=== PATIENT | female | born 1945 | race Caucasian/White ===

== ENCOUNTER 2017-06-19 15:38 | Emergency (ER) | payer MEDICARE ==
[2017-06-19] MEDS ORDERED: Famotidine/PF 20 mg/2ml Vial ONE (16:19)
== END 2017-06-19 18:35 | disposition home or self-care (01) ==
LOC: ERS 15:38
DX: R06.02 Shortness of breath (principal); T50.8X5A Adverse effect of diagnostic agents, initial encounter; E03.9 Hypothyroidism, unspecified; K21.9 Gastro-esophageal reflux disease without esophagitis; G56.00 Carpal tunnel syndrome, unspecified upper limb; G25.81 Restless legs syndrome; E78.5 Hyperlipidemia, unspecified; I10 Essential (primary) hypertension; M19.90 Unspecified osteoarthritis, unspecified site; M81.0 Age-related osteoporosis without current pathological fracture; Z86.19 Personal history of other infectious and parasitic diseases
CPT/HCPCS: 96374; S0028

== ENCOUNTER 2018-01-09 07:26 | Outpatient (CLI) | payer MEDICARE ==
--- NOTE | 2018-01-09 08:36 | RAD ---
KUB: Date: 01/09/18 COMPARISON: 05/04/15. HISTORY: Calculus of kidney, microscopic hematuria. FINDINGS: Dense stool is seen within the colon, limiting assessment of the renal shadows. No discrete renal sto ne can be visualized on either side. There is evidence of multilevel lower lumbar spine surgery, whic h appears grossly unchanged. The bowel gas pattern appears nonobstructed. IMPRESSION: Grossly unremarkable KUB, assessment limited secondary to stool within the colon. POS: [facility]
--- NOTE | 2018-01-09 08:59 | ULT ---
BILATERAL RENAL ULTRASOUND: Date: 01/09/18 HISTORY: Renal calculus. FINDINGS: The right kidney measures 10.0 cm in length and the left kidney measures 9.4 cm in length. No hydrone phrosis or focal mass is seen on either side. There is a 6.0 mm echogenic focus in the right mid zana l cortex consistent with calculus, stable since 04/28/16. The urinary bladder is grossly unremarkable . IMPRESSION: Nonobstructing 6.0 mm right renal calculus. POS: [facility]
== END 2018-01-09 07:27 | disposition home or self-care (01) ==
LOC: ULT 07:26
PROVIDERS: ATTEND Urology
DX: N20.0 Calculus of kidney (principal); R31.29 Other microscopic hematuria
CPT/HCPCS: 36415; 74018; 76770; 80048; 81001; 87086; 88112

== ENCOUNTER 2018-01-22 12:44 | Outpatient (CLI) | payer MEDICARE ==
--- NOTE | 2018-01-22 13:47 | RAD ---
KUB: Date: 01/22/18 HISTORY: renal stones. FINDINGS: Comparison made with exam of 01/09/18. No suspicious calcifications are seen. Postop changes of metallic hardware in the lower lumbar spine again seen as on 01/09/18. The bowel gas pattern is unremarkable. There is fecal material in the colo n. IMPRESSION: No radiographic evidence of urinary tract calculi. POS: [facility]
== END 2018-01-22 12:45 | disposition home or self-care (01) ==
LOC: RAD 12:44
PROVIDERS: ATTEND Urology
DX: N20.0 Calculus of kidney (principal)
CPT/HCPCS: 74018

== ENCOUNTER 2018-06-19 11:03 | Outpatient (CLI) | payer MEDICARE ==
--- NOTE | 2018-06-19 13:20 | CT ---
CT ABDOMEN AND PELVIS WITHOUT CONTRAST: HISTORY: Left upper quadrant pain. COMPARISON: 04/25/2016 FINDINGS: Absence of oral and IV contrast reduces the sensitivity of the exam, particularly for evaluation of s olid organs involved. The lung bases are unremarkable. There is fatty infiltration of the liver. No calcified gallstones are seen. No free air or free fluid is noted in the abdomen or pelvis. No calculi are seen in the kidneys, ureters, or urinary bladder. No hydroureteronephrosis is noted o n either side. The patient is post hysterectomy. Postop changes of posterior spinal fusion and metallic hardware ar e seen in the lower lumbar spine. Neurovascular calcification without evidence of aneurysmal dilatat ion of the abdominal aorta. IMPRESSION: 1. Fatty liver. 2. No CT evidence of urinary tract calculi or obstruction. POS: [facility]
== END 2018-06-19 11:04 | disposition home or self-care (01) ==
LOC: BICCT 11:03
PROVIDERS: ATTEND Family Medicine
DX: R10.12 Left upper quadrant pain (principal); K76.0 Fatty (change of) liver, not elsewhere classified
CPT/HCPCS: 74176

== ENCOUNTER 2019-03-05 13:03 | Outpatient (CLI) | payer MEDICARE ==
--- NOTE | 2019-03-05 14:13 | RAD ---
ONE VIEW ABDOMEN: 03/05/19 HISTORY: Renolithiasis. COMPARISON: None. FINDINGS: Nonspecific bowel gas pattern. No suspicious densities overlying the expected region of the left and right renal silhouette. Limited evaluation due to bowel gas. No evidence of pneumoperitoneum in the supine projection. Stable postsurgical changes in the distal l umbar spine and lumbosacral junction. IMPRESSION: No radiographic evidence of nephrolithiasis. POS: [facility]
== END 2019-03-05 13:04 | disposition home or self-care (01) ==
LOC: RAD 13:03
PROVIDERS: ATTEND Urology
DX: N20.0 Calculus of kidney (principal)
CPT/HCPCS: 74018

== ENCOUNTER 2021-02-26 15:02 | Outpatient (CLI) | payer MEDICARE, OTHER | END 2021-02-26 15:03 | disposition home or self-care (01) | LOC: BICCT 15:02 | PROVIDERS: ATTEND Urology | DX: N20.0 Calculus of kidney (principal); K59.00 Constipation, unspecified; K57.90 Diverticulosis of intestine, part unspecified, without perforation or abscess without bleeding; I70.90 Unspecified atherosclerosis | CPT/HCPCS: 74176 ==

== ENCOUNTER 2021-03-11 19:00 | Outpatient (CLI) | payer MEDICARE, OTHER | END 2021-03-11 19:01 | disposition home or self-care (01) | LOC: SLEEPLAB 19:00 | PROVIDERS: ATTEND Family Medicine | DX: G47.33 Obstructive sleep apnea (adult) (pediatric) (principal); R53.83 Other fatigue; F32.9 Major depressive disorder, single episode, unspecified; R35.1 Nocturia; E11.9 Type 2 diabetes mellitus without complications; I10 Essential (primary) hypertension; G47.10 Hypersomnia, unspecified; E66.9 Obesity, unspecified; Z68.26 Body mass index [BMI] 26.0-26.9, adult | CPT/HCPCS: 95811 ==

== ENCOUNTER 2023-04-22 12:16 | Inpatient (IN) | payer MEDICARE ==
[2023-04-22 12:43] LABS: White Blood Cell (WBC) Count 6.8 10x3/uL (4.8-10.8)
[2023-04-22 12:44] LABS: #Eosinphils 0.1 thou/uL (0.0-0.7); #Monocytes 0.5 thou/uL (0.11-0.59); #Neutrophils 4.7 thou/uL (1.40-6.50); %Basophils 0.6 % (0.0-1.0); %Eosinophils 0.7 % (0.0-10.0); %Monocytes 7.8 % (0.0-10.0); %Neutrophils 68.6 % (42.0-75.0); Hematocrit 42.4 % (36.0-47.0); Hemoglobin 14.2 g/dL (12.0-16.0); Mean Corpuscular HGB CONC 33.5 g/dL (32.0-36.0); Mean Corpuscular Hemoglobin 31.5 pg (27.0-31.0); Mean Platelet Volume 9.7 fL (7.4-10.4); Platelet Count 212 10x3/uL (130-400); RBC Distribution Width 11.7 % (11.5-14.5); Red Blood Cell (RBC) Count 4.51 mill/uL (4.20-5.40)
[2023-04-22 13:00] LABS: Alkaline Phosphatase 110 U/L (40-110); Anion Gap 13 mmol/L (10-20); BUN (Urea Nitrogen) 22 mg/dL (9.8-20.1); Bilirubin, Total 0.5 mg/dL (0.2-1.2); Calc. Creatinine Clearance 0 mL/min (70-130); Calcium 9.6 mg/dL (7.8-10.44); Carbon Dioxide 27 mmol/L (23-31); Chloride 100 mmol/L (98-107); Estimated GFR 69; Globulin 3.3 g/dL (2.4-3.5); Glucose 302 mg/dL (83-110); Potassium 4.7 mmol/L (3.5-5.1); Protein, Total 7.3 g/dL (5.8-8.1); Sodium 135 mmol/L (136-145)
[2023-04-22 13:01] LABS: ALT (SGPT) 32 U/L (8-55); AST (SGOT) 22 U/L (5-34); CK (CPK) 118 U/L (29-168); PTT 29.4 sec (22.9-36.1); Prothrombin Time 13.5 sec (12.0-14.7)
[2023-04-22 13:18] LABS: Troponin I Less than 0.010 ng/mL (< 0.028)
[2023-04-22] MEDS ORDERED: Aspirin 325 MG TAB ONE (13:38)
[2023-04-22 13:45] LABS: Bacteria/HPF None Seen HPF (None Seen); Bilirubin Negative (Negative); Blood, Urine Negative (Negative); CAUTI Indications for Culture Dysuria,urgency,freq; Clarity Clear (Clear); Glucose, Urine (Dipstick) 500 mg/dL (Negative); Ketone, Urine Negative (Negative); Leukocyte Negative Leu/uL (Negative); Nitrite Negative (Negative); Protein, Urine (Dipstick) Negative (Neg-Trace); RBC/HPF 0-3 HPF (0-3); Specific Gravity, Urine 1.036 (1.002-1.036); Squamous Epithelial 0-3 HPF (0-3); Urobilinogen Normal mg/dL (Less than 2); WBC/HPF None Seen HPF (0-3)
[2023-04-22 13:47] LABS: Urine Culture Reflex No No
[2023-04-22] MEDS ORDERED: Acetaminophen 325 MG TAB PO PRN (14:40)
[2023-04-22] MEDS ORDERED: Senokot S 8.6-50 MG TAB PO PRN (14:40)
[2023-04-22] MEDS ORDERED: Ondansetron ODT 4 MG TAB PO PRN (14:40)
[2023-04-22] MEDS ORDERED: Ondansetron PF 4 MG/2 ML Vial IVP PRN (14:40)
[2023-04-22] MEDS ORDERED: hydrALAZINE 20 MG/ML VIAL SLOW IVP PRN (14:40)
[2023-04-22] MEDS ORDERED: Acetaminophen 650 MG Suppository PR PRN (14:40)
[2023-04-22] MEDS ORDERED: Dextrose 50% Abboject 50 ML SYRINGE SLOW IVP PRN (15:00)
[2023-04-22] MEDS ORDERED: Dextrose 5% in Water 1,000 ML IV PRN (15:00)
[2023-04-22] MEDS ORDERED: Insulin Regular 300 UNITS/3 ML VIAL SC PRN (15:00)
[2023-04-22] MEDS ORDERED: Glucagon 1 MG/ML KIT IM PRN (15:00)
[2023-04-22] MEDS ORDERED: Iopamidol-370 76% 500 ML MDV (1 ML CHARGE) ONE (15:52)
[2023-04-22] MEDS: Atorvastatin Calcium 40 MG TAB PO SCH (22:09)
[2023-04-22] MEDS: Oxybutynin 5 MG TAB PO SCH (22:10)
[2023-04-22] MEDS: glipiZIDE 5 MG TAB PO SCH (22:10)
[2023-04-22] MEDS ORDERED: diphenhydrAMINE 30 GM TUBE TOP PRN (23:19)
[2023-04-23 05:56] LABS: #Basophils 0.1 thou/uL (0.0-0.2); #Eosinphils 0.2 thou/uL (0.0-0.7); #Monocytes 0.8 thou/uL (0.11-0.59); #Neutrophils 3.6 thou/uL (1.40-6.50); %Lymphocytes 30.7 % (21.0-51.0); %Monocytes 11.2 % (0.0-10.0); %Neutrophils 53.4 % (42.0-75.0); Hematocrit 43.5 % (36.0-47.0); Hemoglobin 14.2 g/dL (12.0-16.0); Mean Corpuscular HGB CONC 32.6 g/dL (32.0-36.0); Mean Corpuscular Hemoglobin 30.9 pg (27.0-31.0); Mean Corpuscular Volume 94.8 fl (78.0-98.0); Mean Platelet Volume 9.7 fL (7.4-10.4); Platelet Count 198 10x3/uL (130-400); RBC Distribution Width 11.9 % (11.5-14.5); Red Blood Cell (RBC) Count 4.59 mill/uL (4.20-5.40); White Blood Cell (WBC) Count 6.7 10x3/uL (4.8-10.8)
[2023-04-23 06:26] LABS: Anion Gap 16 mmol/L (10-20); BUN (Urea Nitrogen) 15 mg/dL (9.8-20.1); Calc. Creatinine Clearance 5 mL/min (70-130); Calcium 9.3 mg/dL (7.8-10.44); Carbon Dioxide 25 mmol/L (23-31); Cardiac Risk 4.6 (Less than 4.5); Chloride 101 mmol/L (98-107); Cholesterol 137 mg/dl (< 200 Desired); Estimated GFR 79; Glucose 109 mg/dL (83-110); HDL Cholesterol 30 mg/dL (>60 Neg Risk); LDL Cholesterol, Calculated 52 mg/dL; Potassium 3.7 mmol/L (3.5-5.1); Sodium 138 mmol/L (136-145); Triglycerides 274 mg/dL (Less than 150)
[2023-04-23] MEDS ORDERED: Thyroid 60 MG TAB PO SCH (09:00)
[2023-04-23] MEDS: Aspirin 81 mg Enteric Coated Tablet PO SCH (09:51)
[2023-04-23] MEDS: FLUoxetine HCl 10 MG CAP PO SCH (09:52)
[2023-04-23] MEDS: Oxybutynin 5 MG TAB PO SCH ×2 (09:54→20:58)
[2023-04-23] MEDS: glipiZIDE 5 MG TAB PO SCH ×2 (13:01→20:58)
[2023-04-23] MEDS ORDERED: diphenhydrAMINE 25 MG CAP PO PRN (13:02)
[2023-04-23] MEDS ORDERED: diphenhydrAMINE 25 MG CAP PO SCH (13:15)
[2023-04-23] MEDS ORDERED: Polyvinyl Alcohol 1.4%/Povidone 0.6% Opth Drops EA EYE PRN (17:01)
[2023-04-23] MEDS: Ascorbic Acid 500 mg Chewable Tablet PO SCH (20:57)
[2023-04-23] MEDS: Atorvastatin Calcium 40 MG TAB PO SCH (20:58)
[2023-04-23] MEDS ORDERED: rOPINIRole HCl 2 MG TAB PO SCH (21:00)
[2023-04-23] MEDS ORDERED: CRANBERRY EXTRACT PO SCH (21:00)
[2023-04-23] MEDS ORDERED: Magnesium Oxide 400 MG TAB PO SCH (21:00)
[2023-04-24] MEDS ORDERED: Thyroid 30 MG TAB PO SCH ×2 (06:00→09:00)
[2023-04-24 08:23] VITALS: TEMP 97.2
[2023-04-24] MEDS ORDERED: Floranex 1 GM Packet PO SCH (09:00)
[2023-04-24] MEDS ORDERED: [UNRECOGNIZED DRUG - OTHER] PO SCH (09:00)
[2023-04-24] MEDS ORDERED: Multivitamin W/ Minerals 1 TAB PO SCH (09:00)
[2023-04-24] MEDS ORDERED: Loratadine 10 MG TAB PO SCH (09:00)
[2023-04-24] MEDS ORDERED: Atenolol 50 MG TAB PO SCH (09:00)
[2023-04-24] MEDS ORDERED: BIOTIN PO SCH (09:00)
[2023-04-24] MEDS: glipiZIDE 5 MG TAB PO SCH (09:09)
[2023-04-24] MEDS: Ascorbic Acid 500 mg Chewable Tablet PO SCH (09:09)
[2023-04-24] MEDS: Aspirin 81 mg Enteric Coated Tablet PO SCH (09:10)
[2023-04-24] MEDS: Oxybutynin 5 MG TAB PO SCH (09:10)
[2023-04-24] MEDS: FLUoxetine HCl 10 MG CAP PO SCH (09:26)
[2023-04-24 12:37] VITALS: BP 135/63
[2023-04-24] MEDS ORDERED: glipiZIDE 5 MG TAB PO SCH (16:30)
[2023-04-25] MEDS ORDERED: Thyroid 60 MG TAB PO SCH (06:00)
== END 2023-04-24 17:02 | disposition home or self-care (01) | DRG 93 ==
LOC: ERS 12:16 → 2SE 14:26 → INTOOBSV 14:26 → OBSVTOIN 04-23 17:04
PROVIDERS: ADMIT Family Medicine; ATTEND Internal Medicine Critical Care Medicine
DX: R20.2 Paresthesia of skin (principal); R29.90 Unspecified symptoms and signs involving the nervous system; F29 Unspecified psychosis not due to a substance or known physiological condition; F31.9 Bipolar disorder, unspecified; Z66 Do not resuscitate; F20.9 Schizophrenia, unspecified; E11.9 Type 2 diabetes mellitus without complications; G25.81 Restless legs syndrome; I10 Essential (primary) hypertension; E78.5 Hyperlipidemia, unspecified; E03.9 Hypothyroidism, unspecified; M19.90 Unspecified osteoarthritis, unspecified site; F41.9 Anxiety disorder, unspecified; R53.1 Weakness; K76.0 Fatty (change of) liver, not elsewhere classified; Z88.5 Allergy status to narcotic agent; Z88.1 Allergy status to other antibiotic agents; Z88.2 Allergy status to sulfonamides; Z88.8 Allergy status to other drugs, medicaments and biological substances; Z91.040 Latex allergy status; Z91.013 Allergy to seafood; Z91.018 Allergy to other foods; Z90.89 Acquired absence of other organs; Z98.891 History of uterine scar from previous surgery; Z90.710 Acquired absence of both cervix and uterus; Z98.49 Cataract extraction status, unspecified eye; Z98.890 Other specified postprocedural states
CPT/HCPCS: 0042T; 36415; 36416; 70450; 70496; 70498; 80048; 80053; 80061; 81001; 82550; 84484; 85025; 85610; 85730; 93005; 93306; G0378; J1650; Q9967

== ENCOUNTER 2023-07-21 17:00 | Outpatient (CLI) | payer MEDICARE | END 2023-07-21 17:01 | disposition home or self-care (01) | LOC: SLEEPLAB 17:00 | PROVIDERS: ATTEND Internal Medicine Critical Care Medicine | DX: G47.33 Obstructive sleep apnea (adult) (pediatric) (principal); I10 Essential (primary) hypertension; K21.9 Gastro-esophageal reflux disease without esophagitis; M19.90 Unspecified osteoarthritis, unspecified site; E78.00 Pure hypercholesterolemia, unspecified; E03.9 Hypothyroidism, unspecified; N95.2 Postmenopausal atrophic vaginitis; I82.409 Acute embolism and thrombosis of unspecified deep veins of unspecified lower extremity; K57.90 Diverticulosis of intestine, part unspecified, without perforation or abscess without bleeding; E11.9 Type 2 diabetes mellitus without complications; G25.81 Restless legs syndrome; R32 Unspecified urinary incontinence; H91.90 Unspecified hearing loss, unspecified ear; I49.3 Ventricular premature depolarization | CPT/HCPCS: 95977 ==

== ENCOUNTER 2024-09-12 21:00 | Inpatient (IN) | payer MEDICARE ==
[2024-09-12] MEDS ORDERED: Dextrose 5% in Water 1,000 ML IV PRN ×2 (22:08→22:41)
[2024-09-12] MEDS ORDERED: Dextrose 50% Abboject 50 ML SYRINGE SLOW IVP PRN (22:08)
[2024-09-12] MEDS ORDERED: Glucagon 1 MG/ML KIT IM PRN (22:08)
[2024-09-12 22:35] VITALS: BMI 24.7
[2024-09-12] MEDS: Sodium Chloride 0.9% 1,000 ML IV SCH (22:45)
[2024-09-12 23:01] LABS: #Basophils Less than 0.03 10x3/uL (0.0-0.2); #Eosinophils Less than 0.03 10x3/uL (0.0-0.7); %Basophils 0.2 % (0.0-1.0); %Lymphocytes 6.1 % (21.0-51.0); %Monocytes 2.8 % (0.0-10.0); %Neutrophils 90.1 % (42.0-75.0); Hematocrit 39.4 % (36.0-47.0); Hemoglobin 13.2 g/dL (12.0-16.0); Mean Corpuscular HGB CONC 33.5 g/dL (32.0-36.0); Mean Corpuscular Volume 92.5 fL (78.0-98.0); Platelet Count 162 10x3/uL (130-400); RBC Distribution Width 12.3 % (11.5-14.5); Red Blood Cell (RBC) Count 4.26 mill/uL (4.20-5.40)
[2024-09-12 23:09] LABS: Hemoglobin A1c 9.5 % (4.0-6.0)
[2024-09-12 23:28] LABS: Anion Gap 19 mmol/L (10-20); BUN (Urea Nitrogen) 22 mg/dL (9.8-20.1); Calc. Creatinine Clearance 68 mL/min (70-130); Calcium 8.3 mg/dL (7.8-10.44); Carbon Dioxide 14 mmol/L (23-31); Chloride 107 mmol/L (98-107); Estimated GFR 91; Glucose 342 mg/dL (83-110); Potassium 4.1 mmol/L (3.5-5.1); Sodium 136 mmol/L (136-145)
[2024-09-12 23:33] LABS: Troponin I 0.031 ng/mL (< 0.028)
[2024-09-13 00:18] LABS: Lactic Acid 1.34 mmol/L (0.50-2.20)
[2024-09-13] MEDS ORDERED: Electrolyte Replacement Protocol 1 EACH FS PRN (00:22)
[2024-09-13] MEDS ORDERED: Dextrose 5%-Lactated Ringers 1,000 ML IV SCH (00:45)
[2024-09-13 02:48] LABS: ALT (SGPT) 45 U/L (Less than 34); AST (SGOT) 48 U/L (11-34); Albumin 2.9 g/dL (3.1-4.5); Alkaline Phosphatase 72 U/L (40-110); Anion Gap 19 mmol/L (10-20); BUN (Urea Nitrogen) 21 mg/dL (9.8-20.1); Bilirubin, Total 0.7 mg/dL (0.3-1.2); Calc. Creatinine Clearance 64 mL/min (70-130); Calcium 8.3 mg/dL (7.8-10.44); Carbon Dioxide 15 mmol/L (23-31); Chloride 108 mmol/L (98-107); Estimated GFR 90; Globulin 3.6 g/dL (2.4-3.5); Glucose 335 mg/dL (83-110); Magnesium 1.9 mg/dL (1.6-2.6); Potassium 4.1 mmol/L (3.5-5.1); Protein, Total 6.5 g/dL (5.8-8.1); Sodium 138 mmol/L (136-145); Troponin I 0.025 ng/mL (< 0.028)
[2024-09-13] MEDS: Cefepime 1 GM in Sodium Chloride 0.9% 100 ML IVPB SCH (04:27)
[2024-09-13] MEDS: Insulin Lispro 100 UNIT/ML 10 ML VIAL SC PRN ×2 (04:43→18:04)
[2024-09-13 08:14] LABS: Anion Gap 18 mmol/L (10-20); BUN (Urea Nitrogen) 24 mg/dL (9.8-20.1); Calc. Creatinine Clearance 66 mL/min (70-130); Calcium 8.5 mg/dL (7.8-10.44); Carbon Dioxide 18 mmol/L (23-31); Chloride 111 mmol/L (98-107); Estimated GFR 90; Glucose 259 mg/dL (83-110); Potassium 3.9 mmol/L (3.5-5.1); Sodium 143 mmol/L (136-145)
[2024-09-13] MEDS: FLU (Fluad Triv) TS24-25 (65UP)/MF59C/PF 45 MCG/0.5 ML Syringe IM ONE (08:40)
[2024-09-13] MEDS: Magnesium 2 GM/50 ML(in water) 2 GM in Premix 1 BAG IVPB SCH (08:40)
[2024-09-13] MEDS: Acetaminophen 500 MG TAB PO PRN (08:59)
[2024-09-13] MEDS: Methocarbamol 500 MG TAB PO PRN (08:59)
[2024-09-13] MEDS: Lidocaine 4% Topical Sol 50 ML BOT TOP SCH (19:25)
[2024-09-13] MEDS: Enoxaparin 30 MG (0.3 mL) SYRINGE SC SCH (20:42)
[2024-09-13] MEDS: Lidocaine 4% Patch TD SCH (20:42)
[2024-09-14 07:23] LABS: #Basophils 0.03 10x3/uL (0.0-0.2); #Eosinophils Less than 0.03 10x3/uL (0.0-0.7); %Basophils 0.3 % (0.0-1.0); %Eosinophils 0.2 % (0.0-10.0); %Lymphocytes 10.2 % (21.0-51.0); %Neutrophils 81.6 % (42.0-75.0); Hematocrit 39.3 % (36.0-47.0); Hemoglobin 12.7 g/dL (12.0-16.0); Mean Corpuscular HGB CONC 32.3 g/dL (32.0-36.0); Mean Corpuscular Hemoglobin 31.2 pg (27.0-31.0); Mean Corpuscular Volume 96.6 fL (78.0-98.0); Platelet Count 161 10x3/uL (130-400); RBC Distribution Width 12.2 % (11.5-14.5); Red Blood Cell (RBC) Count 4.07 mill/uL (4.20-5.40)
[2024-09-14 07:51] LABS: Anion Gap 18 mmol/L (10-20); BUN (Urea Nitrogen) 20 mg/dL (9.8-20.1); Calc. Creatinine Clearance 72 mL/min (70-130); Calcium 8.2 mg/dL (7.8-10.44); Carbon Dioxide 16 mmol/L (23-31); Chloride 109 mmol/L (98-107); Estimated GFR 92; Glucose 216 mg/dL (83-110); Magnesium 2.1 mg/dL (1.6-2.6); Potassium 3.8 mmol/L (3.5-5.1); Sodium 139 mmol/L (136-145)
[2024-09-14] MEDS: Amlodipine 5 MG TAB PO SCH (12:07)
[2024-09-14] MEDS: Transdermal Patch Removal TOP SCH (12:08)
[2024-09-14 12:54] VITALS: BMI 25.0
[2024-09-14] MEDS: metFORMIN 500 MG TAB PO SCH (17:41)
[2024-09-14] MEDS: Atorvastatin Calcium 10 MG TAB PO SCH (20:04)
[2024-09-15] MEDS: Melatonin 3 MG TAB PO SCH (00:57)
[2024-09-15] MEDS: diphenhydrAMINE 25 MG CAP PO SCH (02:01)
[2024-09-15] MEDS: traMADol HCl 50 MG TAB PO SCH (02:02)
[2024-09-15] MEDS: Thyroid 30 MG TAB PO SCH (05:19)
[2024-09-15] MEDS: Aspirin 81 mg Enteric Coated Tablet PO SCH (08:26)
[2024-09-15] MEDS: Amlodipine 5 MG TAB PO SCH ×2 (08:27→09:37)
[2024-09-15] MEDS: Saxagliptin 2.5 MG TAB PO SCH (09:37)
[2024-09-16] MEDS: Thyroid 60 MG TAB PO SCH (04:29)
[2024-09-16 04:59] LABS: #Basophils 0.03 10x3/uL (0.0-0.2); %Basophils 0.5 % (0.0-1.0); %Eosinophils 2.1 % (0.0-10.0); %Lymphocytes 12.7 % (21.0-51.0); %Monocytes 9.5 % (0.0-10.0); %Neutrophils 74.4 % (42.0-75.0); Hematocrit 38.9 % (36.0-47.0); Mean Corpuscular HGB CONC 33.4 g/dL (32.0-36.0); Mean Corpuscular Volume 92.8 fL (78.0-98.0); Mean Platelet Volume 9.9 fL (7.4-10.4); Platelet Count 170 10x3/uL (130-400); RBC Distribution Width 12.3 % (11.5-14.5); Red Blood Cell (RBC) Count 4.19 mill/uL (4.20-5.40)
[2024-09-16 05:18] LABS: Anion Gap 17 mmol/L (10-20); BUN (Urea Nitrogen) 12 mg/dL (9.8-20.1); Calc. Creatinine Clearance 74 mL/min (70-130); Calcium 8.6 mg/dL (7.8-10.44); Carbon Dioxide 20 mmol/L (23-31); Chloride 106 mmol/L (98-107); Estimated GFR 93; Glucose 177 mg/dL (83-110); Magnesium 1.8 mg/dL (1.6-2.6); Potassium 3.6 mmol/L (3.5-5.1); Sodium 139 mmol/L (136-145)
[2024-09-16] MEDS: Ondansetron PF 4 MG/2 ML Vial IVP PRN (08:41)
[2024-09-16] MEDS: Magnesium 2 GM/50 ML(in water) 2 GM in Premix 1 BAG IVPB SCH (08:41)
[2024-09-16] MEDS ORDERED: hydrALAZINE 20 MG/ML VIAL SLOW IVP PRN (10:09)
[2024-09-16] MEDS ORDERED: Ketorolac Tromethamine 30 MG (1 mL) VIAL IVP PRN (15:21)
[2024-09-16] MEDS: traMADol HCl 50 MG TAB PO PRN (16:17)
[2024-09-16] MEDS ORDERED: Lidocaine 4% Patch TD SCH (17:15)
[2024-09-16] MEDS: Gabapentin 100 MG CAP PO SCH (19:40)
[2024-09-16] MEDS: Amlodipine 5 MG TAB PO SCH (19:40)
[2024-09-16] MEDS: Enoxaparin 40 MG (0.4 mL) SYRINGE SC SCH (19:40)
[2024-09-16] MEDS: Aluminum & Magnesium Hydroxide 60 ML, Lidocaine 2% Viscous Solution 30 ML, diphenhydrAM... SSW SCH (20:24)
[2024-09-17] MEDS: Transdermal Patch Removal TOP SCH (05:42)
[2024-09-17] MEDS: MAGIC MOUTHWASH 10 ML, Compounding Fee 1 SSW SCH (16:22)
[2024-09-17] MEDS: Lidocaine 4% Patch TD SCH (18:07)
[2024-09-18] MEDS: Metoprolol Succinate XL 25 MG ER.TAB PO SCH (12:35)
[2024-09-18 13:47] VITALS: BP 145/69; TEMP 98.4
[2024-09-19] MEDS ORDERED: Metoprolol Succinate XL 25 MG ER.TAB PO SCH (09:00)
== END 2024-09-18 17:14 | disposition swing bed (61) | DRG 184 ==
LOC: IMCU/EMU 21:59 → T4-A 09-14 11:22
PROVIDERS: ADMIT Student in an Organized Health Care Education/Training Program; ATTEND Family Medicine
DX: S22.42XA Multiple fractures of ribs, left side, initial encounter for closed fracture (principal); I50.32 Chronic diastolic (congestive) heart failure; S22.41XA Multiple fractures of ribs, right side, initial encounter for closed fracture; I11.0 Hypertensive heart disease with heart failure; E78.5 Hyperlipidemia, unspecified; E03.9 Hypothyroidism, unspecified; R79.89 Other specified abnormal findings of blood chemistry; F03.90 Unspecified dementia, unspecified severity, without behavioral disturbance, psychotic disturbance, mood disturbance, and anxiety; F41.9 Anxiety disorder, unspecified; E11.65 Type 2 diabetes mellitus with hyperglycemia; K21.9 Gastro-esophageal reflux disease without esophagitis; E11.40 Type 2 diabetes mellitus with diabetic neuropathy, unspecified; W19.XXXA Unspecified fall, initial encounter; Z88.8 Allergy status to other drugs, medicaments and biological substances; Z91.018 Allergy to other foods; Z88.2 Allergy status to sulfonamides; Z91.040 Latex allergy status; Z91.013 Allergy to seafood; Z90.89 Acquired absence of other organs; Z98.890 Other specified postprocedural states; Z90.710 Acquired absence of both cervix and uterus; Z98.891 History of uterine scar from previous surgery; K13.79 Other lesions of oral mucosa
CPT/HCPCS: 36415; 36416; 71045; 80048; 80053; 82010; 83036; 83605; 83735; 84443; 84484; 85025; 93306; 94760; J0692; J1650; J1815; J2405; J3475; Q0163